=== PATIENT | male | born 1945 | race Caucasian/White ===

== ENCOUNTER 2020-08-18 11:13 | Inpatient (IN) ==
[2020-08-18] MEDS ORDERED: Isovue-370 500 ML BOTTLE IVP ONE (11:36)
[2020-08-18] MEDS ORDERED: 0.9 % Sodium Chloride 2,000 ML ONE (11:36)
[2020-08-18] MEDS: 0.9 % Sodium Chloride 1,000 ML IVC SCH ×4 (11:53→22:13)
[2020-08-18 11:59] LABS: Immature Granulocytes % 0.3 % (0-4); Nucleated Red Blood Cells 0.5 /100 WBC (0)
[2020-08-18 12:01] LABS: Basophils % 0.1 %; Hematocrit 43.5 % (37.5-50.1); Hemoglobin 15.1 g/dL (12.9-16.9); Immature Platelets 5.6 % (1.1-6.1); Lymphocytes # 7.2 K/mcL (0.6-4.6); Lymphocytes % 61.4 %; Mean Corpuscular HGB Conc 34.7 g/dL (31.6-35.5); Mean Corpuscular Hemoglobin 32.6 pg (28.0-33.3); Mean Platelet Volume 9.9 fL (9.4-12.4); Monocytes # 0.6 K/mcL (0.0-1.3); Monocytes % 4.7 %; Neutrophils # 3.9 K/mcL (1.6-8.9); Red Blood Count 4.63 M/mcL (4.19-5.50); Segmented Neutrophils % 33.5 %; White Blood Count 11.7 K/mcL (4.3-11.1)
[2020-08-18 12:04] LABS: INR 1.3; Prothrombin Time 14.5 Seconds (9.4-12.1)
[2020-08-18 12:07] LABS: Activated Partial Thrombo Time 28.6 Seconds (26.0-36.0)
[2020-08-18 12:16] LABS: Alanine Aminotransferase 47 Units/L (7-52); Albumin 3.5 g/dL (3.5-5.7); Albumin/Globulin Ratio 1.2 (1.1-2.2); Alkaline Phosphatase 81 Units/L (34-104); Aspartate Amino Transferase 93 Units/L (13-39); BUN/Creatinine Ratio 19 (6-26); Bilirubin,Direct 0.3 mg/dL (0.0-0.2); Bilirubin,Indirect 0.5 mg/dL (0.0-1.0); Bilirubin,Total 0.8 mg/dL (0.3-1.0); Blood Urea Nitrogen 21 mg/dL (8-23); C-Reactive Protein 108 mg/L (Less than 10); Calcium 8.2 mg/dL (8.6-10.3); Carbon Dioxide 22 mEq/L (23-29); Chloride 101 mEq/L (98-107); Globulin 2.9 g/dL (2.4-3.5); Glucose 115 mg/dL (70-105); Lactate Dehydrogenase 501 Units/L (140-271); Magnesium 1.8 mg/dL (1.6-2.6); Osmolality,Calculated 280 (280-300); Phosphorous 2.5 mg/dL (2.7-4.5); Potassium 3.6 mEq/L (3.5-5.1); Sodium 133 mEq/L (136-145); Total Protein 6.4 g/dL (6.4-8.9); Troponin I 0.04 ng/mL (< 0.04); eGFR For African Americans > 60 (> 60); eGFR For Non-African Americans > 60 (> 60)
[2020-08-18 12:26] LABS: Platelet Count 77 K/mcL (140-400)
[2020-08-18 12:26] LABS: Bilirubin,Urine Negative (Negative); Blood,Urine Large (Negative); Clarity,Urine Clear (Clear); Color,Urine Yellow (Yellow); Glucose,Urine (UA) Normal (Normal); Ketones,Urine Negative (Negative); Leukocyte Esterase,Urine Negative (Negative); Nitrite,Urine Negative (Negative); Protein,Urine 100 mg/dL (Neg-Trace); RBC,Urine 0-3 per hpf (0-3); Specific Gravity,Urine 1.026 (1.010-1.025); WBC,Urine 0-3 per hpf (0-3)
[2020-08-18 12:29] LABS: Platelet Estimate Decreased (Normal); Reactive Lymphocytes Present (Not Present)
[2020-08-18 12:32] LABS: Smudge Cells Present (Not Present)
[2020-08-18 12:39] LABS: Ferritin 792 ng/mL (20-250)
[2020-08-18] MEDS ORDERED: Dexamethasone 4 MG/ML VIAL IVP ONE (14:20)
[2020-08-18] MEDS ORDERED: Potassium Phosphate 44 MEQ in 0.9 % Sodium Chloride 250 ML IVPB ONE (14:22)
[2020-08-18] MEDS ORDERED: Acetaminophen 325 MG TABLET PO PRN (14:24)
[2020-08-18] MEDS ORDERED: Ondansetron 4 MG/2 ML VIAL IVP PRN (14:24)
[2020-08-18 15:05] LABS: Creatine Kinase 1282 Units/L (30-223)
[2020-08-18] MEDS ORDERED: QUEtiapine Fumarate 25 MG TABLET PO SCH (21:00)
[2020-08-19 06:06] LABS: Mean Corpuscular Volume 98.5 fL (83.0-100.0); Red Cell Distribution Width 13.6 % (11.5-14.5)
[2020-08-19 06:08] LABS: Hematocrit 38.7 % (37.5-50.1); Hemoglobin 13.4 g/dL (12.9-16.9); Immature Platelets 4.2 % (1.1-6.1); Mean Corpuscular HGB Conc 34.6 g/dL (31.6-35.5); Mean Corpuscular Hemoglobin 34.1 pg (28.0-33.3); Mean Platelet Volume 9.7 fL (9.4-12.4); Red Blood Count 3.93 M/mcL (4.19-5.50); White Blood Count 9.3 K/mcL (4.3-11.1)
[2020-08-19 06:14] LABS: BUN/Creatinine Ratio 21 (6-26); Blood Urea Nitrogen 19 mg/dL (8-23); Calcium 7.4 mg/dL (8.6-10.3); Carbon Dioxide 22 mEq/L (23-29); Chloride 108 mEq/L (98-107); Glucose 85 mg/dL (70-105); Magnesium 2.2 mg/dL (1.6-2.6); Osmolality,Calculated 284 (280-300); Phosphorous 2.9 mg/dL (2.7-4.5); Potassium 4.1 mEq/L (3.5-5.1); Sodium 136 mEq/L (136-145); eGFR For African Americans > 60 (> 60); eGFR For Non-African Americans > 60 (> 60)
[2020-08-19 06:43] LABS: Albumin/Globulin Ratio 1.3 (1.1-2.2); Bilirubin,Direct 0.2 mg/dL (0.0-0.2); Bilirubin,Indirect 0.4 mg/dL (0.0-1.0); Bilirubin,Total 0.6 mg/dL (0.3-1.0); Globulin 2.4 g/dL (2.4-3.5); Total Protein 5.4 g/dL (6.4-8.9)
[2020-08-19] MEDS: Aspirin Enteric Coated 81 MG Tablet PO SCH (08:11)
[2020-08-19] MEDS: QUEtiapine Fumarate 25 MG TABLET PO SCH ×3 (08:11→20:24)
[2020-08-19] MEDS: Dexamethasone 4 MG/ML VIAL IVP SCH (08:11)
[2020-08-19 15:38] LABS: Bilirubin,Urine Negative (Negative); Blood,Urine Large (Negative); Clarity,Urine Clear (Clear); Color,Urine Yellow (Yellow); Glucose,Urine (UA) Normal (Normal); Ketones,Urine Negative (Negative); Leukocyte Esterase,Urine Negative (Negative); Nitrite,Urine Negative (Negative); PH,Urine 6.5 pH Units (5.0-8.0); Protein,Urine 70 mg/dL (Neg-Trace); Specific Gravity,Urine 1.021 (1.010-1.025)
[2020-08-19] MEDS ORDERED: *HR* LORazepam 2 MG/ML VIAL IVP PRN (22:41)
[2020-08-19] MEDS ORDERED: Dexmedetomidine HCl 400 MCG/100 ML MLS IVC ONE (23:52)
[2020-08-20] MEDS ORDERED: Ipratropium 1 PUFF INHALER IH SCH
[2020-08-20] MEDS: Dexmedetomidine HCl 400 MCG/100 ML MLS IVC SCH (00:09)
[2020-08-20] MEDS ORDERED: Ipratropium 1 PUFF INHALER IH PRN (01:42)
[2020-08-20 05:54] LABS: BUN/Creatinine Ratio 21 (6-26); Blood Urea Nitrogen 19 mg/dL (8-23); Calcium 7.7 mg/dL (8.6-10.3); Carbon Dioxide 21 mEq/L (23-29); Chloride 108 mEq/L (98-107); Creatine Kinase 1251 Units/L (30-223); Glucose 105 mg/dL (70-105); Osmolality,Calculated 281 (280-300); Potassium 4.1 mEq/L (3.5-5.1); Sodium 134 mEq/L (136-145); eGFR For African Americans > 60 (> 60); eGFR For Non-African Americans > 60 (> 60)
[2020-08-20] MEDS: Aspirin Enteric Coated 81 MG Tablet PO SCH (07:47)
[2020-08-20] MEDS: QUEtiapine Fumarate 25 MG TABLET PO SCH ×3 (07:47→21:25)
[2020-08-20] MEDS: Dexamethasone 4 MG/ML VIAL IVP SCH (07:48)
[2020-08-20] MEDS: GuaiFENesin Liq 200 MG/10 ML UDC PO PRN (11:27)
[2020-08-20] MEDS ORDERED: *HR* Enoxaparin 40 MG/0.4 ML SYRINGE SQ ONE (14:07)
[2020-08-21] MEDS: *HR* Enoxaparin 40 MG/0.4 ML SYRINGE SQ SCH (05:35)
[2020-08-21 05:39] LABS: Hematocrit 43.5 % (37.5-50.1)
[2020-08-21 05:41] LABS: Immature Platelets 4.4 % (1.1-6.1); Mean Corpuscular HGB Conc 34.5 g/dL (31.6-35.5); Mean Corpuscular Hemoglobin 32.6 pg (28.0-33.3); Mean Corpuscular Volume 94.6 fL (83.0-100.0); Mean Platelet Volume 9.6 fL (9.4-12.4); Red Blood Count 4.6 M/mcL (4.19-5.50); Red Cell Distribution Width 13.3 % (11.5-14.5); White Blood Count 10.7 K/mcL (4.3-11.1)
[2020-08-21 06:07] LABS: BUN/Creatinine Ratio 23 (6-26); Blood Urea Nitrogen 18 mg/dL (8-23); Calcium 8.1 mg/dL (8.6-10.3); Carbon Dioxide 20 mEq/L (23-29); Chloride 105 mEq/L (98-107); Glucose 91 mg/dL (70-105); Osmolality,Calculated 281 (280-300); Sodium 135 mEq/L (136-145); eGFR For African Americans > 60 (> 60); eGFR For Non-African Americans > 60 (> 60)
[2020-08-21] MEDS: Aspirin Enteric Coated 81 MG Tablet PO SCH (08:41)
[2020-08-21] MEDS: Dexamethasone 4 MG/ML VIAL IVP SCH (08:41)
[2020-08-21] MEDS: QUEtiapine Fumarate 25 MG TABLET PO SCH ×3 (08:44→21:20)
[2020-08-21] MEDS: GuaiFENesin Liq 200 MG/10 ML UDC PO PRN (08:57)
[2020-08-21] MEDS ORDERED: Furosemide 20 MG/2 ML VIAL IVP ONE (10:57)
[2020-08-21] MEDS ORDERED: Dexamethasone 4 MG/ML VIAL IVP ONE (11:09)
[2020-08-22 02:33] LABS: Hematocrit 42.5 % (37.5-50.1); Hemoglobin 14.9 g/dL (12.9-16.9); Mean Corpuscular HGB Conc 35.1 g/dL (31.6-35.5); Mean Corpuscular Hemoglobin 33.1 pg (28.0-33.3); Mean Corpuscular Volume 94.4 fL (83.0-100.0); Mean Platelet Volume 9.6 fL (9.4-12.4); Platelet Count 108 K/mcL (140-400); Red Cell Distribution Width 13.2 % (11.5-14.5); White Blood Count 12.7 K/mcL (4.3-11.1)
[2020-08-22 02:51] LABS: BUN/Creatinine Ratio 26 (6-26); Blood Urea Nitrogen 20 mg/dL (8-23); Calcium 8.3 mg/dL (8.6-10.3); Carbon Dioxide 23 mEq/L (23-29); Chloride 105 mEq/L (98-107); Glucose 113 mg/dL (70-105); Osmolality,Calculated 285 (280-300); Potassium 3.7 mEq/L (3.5-5.1); Sodium 136 mEq/L (136-145); eGFR For African Americans > 60 (> 60); eGFR For Non-African Americans > 60 (> 60)
[2020-08-22] MEDS: *HR* Enoxaparin 40 MG/0.4 ML SYRINGE SQ SCH (06:18)
[2020-08-22] MEDS ORDERED: 0.9 % Sodium Chloride 1,000 ML ONE ×2 (07:33→12:26)
[2020-08-22] MEDS: QUEtiapine Fumarate 25 MG TABLET PO SCH ×3 (08:04→20:29)
[2020-08-22] MEDS: Isosorbide MONOnitrate (24 HR) 60 MG TAB.ER.24H PO SCH (08:04)
[2020-08-22] MEDS: Aspirin Enteric Coated 81 MG Tablet PO SCH (08:04)
[2020-08-22] MEDS: Ipratropium 1 PUFF INHALER IH SCH ×5 (08:05→23:51)
[2020-08-22] MEDS: Dexamethasone Sodium Phos/PF 10 MG/ML VIAL IVP SCH (08:05)
[2020-08-22] MEDS: Dexmedetomidine HCl 400 MCG/100 ML MLS IVC SCH ×2 (08:25→18:02)
[2020-08-22] MEDS ORDERED: Dexamethasone Sodium Phos/PF 10 MG/ML VIAL PO SCH (09:00)
[2020-08-22] MEDS ORDERED: Haloperidol Lactate 5 MG/ML VIAL IVP ONE (10:29)
[2020-08-22] MEDS: cefTRIAXone 2,000 MG in Water for inj. (sterile) 20 ML IVP SCH (13:35)
[2020-08-22] MEDS: Azithromycin 500 MG in 0.9 % Sodium Chloride 250 ML IVPB SCH (13:37)
[2020-08-22] MEDS: Norepinephrine 4 MG/254 ML IV.SOLN IVC SCH (13:37)
[2020-08-22] MEDS: Cholecalciferol (D-3) 1,000 UNIT (25MCG) TABLET PO SCH (17:08)
[2020-08-22] MEDS: *HR* Enoxaparin 100 MG/ML SYRINGE SQ SCH (17:26)
[2020-08-22] MEDS: Pantoprazole 40 MG VIAL IVP SCH (17:26)
[2020-08-22] MEDS: Furosemide 40 MG/4 ML VIAL IVP SCH (20:44)
[2020-08-22] MEDS: Phenytoin 200 MG in Equashield Syringe 1 EACH IVP SCH (21:17)
[2020-08-23] MEDS: Dexmedetomidine HCl 400 MCG/100 ML MLS IVC SCH ×4 (03:08→20:46)
[2020-08-23] MEDS: Ipratropium 1 PUFF INHALER IH SCH ×5 (03:41→20:11)
[2020-08-23 03:45] LABS: Hematocrit 39.4 % (37.5-50.1); Hemoglobin 13.8 g/dL (12.9-16.9); Mean Corpuscular Hemoglobin 33.3 pg (28.0-33.3); Mean Corpuscular Volume 95.2 fL (83.0-100.0); Platelet Count 114 K/mcL (140-400); Red Blood Count 4.14 M/mcL (4.19-5.50); Red Cell Distribution Width 13.1 % (11.5-14.5); White Blood Count 11.5 K/mcL (4.3-11.1)
[2020-08-23 04:05] LABS: BUN/Creatinine Ratio 34 (6-26); Blood Urea Nitrogen 29 mg/dL (8-23); Calcium 8.1 mg/dL (8.6-10.3); Carbon Dioxide 27 mEq/L (23-29); Chloride 105 mEq/L (98-107); Glucose 157 mg/dL (70-105); Osmolality,Calculated 295 (280-300); Potassium 3.7 mEq/L (3.5-5.1); Sodium 138 mEq/L (136-145); eGFR For African Americans > 60 (> 60); eGFR For Non-African Americans > 60 (> 60)
[2020-08-23] MEDS: *HR* Enoxaparin 100 MG/ML SYRINGE SQ SCH ×2 (05:19→18:15)
[2020-08-23] MEDS: Phenytoin 200 MG in Equashield Syringe 1 EACH IVP SCH ×2 (07:45→20:20)
[2020-08-23] MEDS: Aspirin Enteric Coated 81 MG Tablet PO SCH (09:27)
[2020-08-23] MEDS: Cholecalciferol (D-3) 1,000 UNIT (25MCG) TABLET PO SCH (09:28)
[2020-08-23] MEDS: QUEtiapine Fumarate 25 MG TABLET PO SCH ×4 (09:28→22:51)
[2020-08-23] MEDS: Isosorbide MONOnitrate (24 HR) 60 MG TAB.ER.24H PO SCH (09:28)
[2020-08-23] MEDS: Pantoprazole 40 MG VIAL IVP SCH (09:38)
[2020-08-23] MEDS: Furosemide 40 MG/4 ML VIAL IVP SCH ×2 (09:38→20:21)
[2020-08-23] MEDS: Dexamethasone Sodium Phos/PF 10 MG/ML VIAL IVP SCH (09:38)
[2020-08-23] MEDS ORDERED: 0.9 % Sodium Chloride 250 ML ONE (12:25)
[2020-08-23] MEDS: cefTRIAXone 2,000 MG in Water for inj. (sterile) 20 ML IVP SCH (12:26)
[2020-08-23] MEDS: Azithromycin 500 MG in 0.9 % Sodium Chloride 250 ML IVPB SCH (12:26)
[2020-08-23] MEDS: Norepinephrine 4 MG/254 ML IV.SOLN IVC SCH (12:27)
[2020-08-23] MEDS ORDERED: *HR* LORazepam 2 MG/ML VIAL IVP ONE (22:13)
[2020-08-24] MEDS: Ipratropium 1 PUFF INHALER IH SCH ×6 (00:15→20:47)
[2020-08-24] MEDS: Dexmedetomidine HCl 400 MCG/100 ML MLS IVC SCH ×4 (02:18→20:32)
[2020-08-24] MEDS: *HR* Enoxaparin 100 MG/ML SYRINGE SQ SCH ×2 (05:09→16:59)
[2020-08-24 05:18] LABS: Hemoglobin 14.5 g/dL (12.9-16.9); Mean Corpuscular HGB Conc 33.7 g/dL (31.6-35.5); Mean Corpuscular Hemoglobin 32.2 pg (28.0-33.3); Mean Corpuscular Volume 95.3 fL (83.0-100.0); Mean Platelet Volume 9.6 fL (9.4-12.4); Platelet Count 162 K/mcL (140-400); Red Blood Count 4.51 M/mcL (4.19-5.50); White Blood Count 12.7 K/mcL (4.3-11.1)
[2020-08-24] MEDS ORDERED: *HR* LORazepam 2 MG/ML VIAL IVP ONE (05:27)
[2020-08-24 05:34] LABS: BUN/Creatinine Ratio 31 (6-26); Blood Urea Nitrogen 29 mg/dL (8-23); Calcium 8.4 mg/dL (8.6-10.3); Carbon Dioxide 28 mEq/L (23-29); Chloride 106 mEq/L (98-107); Glucose 156 mg/dL (70-105); Osmolality,Calculated 303 (280-300); Potassium 3.7 mEq/L (3.5-5.1); Sodium 142 mEq/L (136-145); eGFR For African Americans > 60 (> 60); eGFR For Non-African Americans > 60 (> 60)
[2020-08-24] MEDS: Pantoprazole 40 MG VIAL IVP SCH (07:42)
[2020-08-24] MEDS: Furosemide 40 MG/4 ML VIAL IVP SCH ×2 (07:43→19:59)
[2020-08-24] MEDS: Dexamethasone Sodium Phos/PF 10 MG/ML VIAL IVP SCH (07:43)
[2020-08-24] MEDS: Phenytoin 200 MG in Equashield Syringe 1 EACH IVP SCH ×2 (07:46→19:58)
[2020-08-24] MEDS: QUEtiapine Fumarate 25 MG TABLET PO SCH ×3 (07:53→19:59)
[2020-08-24] MEDS: Isosorbide MONOnitrate (24 HR) 60 MG TAB.ER.24H PO SCH (07:53)
[2020-08-24] MEDS: Cholecalciferol (D-3) 1,000 UNIT (25MCG) TABLET PO SCH (07:53)
[2020-08-24] MEDS: Aspirin Enteric Coated 81 MG Tablet PO SCH (07:53)
[2020-08-24] MEDS ORDERED: 0.9 % Sodium Chloride 250 ML ONE (08:15)
[2020-08-24] MEDS ORDERED: Haloperidol Lactate 5 MG/ML VIAL IVP ONE (09:34)
[2020-08-24] MEDS: Azithromycin 500 MG in 0.9 % Sodium Chloride 250 ML IVPB SCH (11:55)
[2020-08-24] MEDS: cefTRIAXone 2,000 MG in Water for inj. (sterile) 20 ML IVP SCH (11:57)
[2020-08-24] MEDS: *HR* LORazepam 2 MG/ML VIAL IVP PRN ×2 (14:55→22:08)
[2020-08-25] MEDS: Ipratropium 1 PUFF INHALER IH SCH ×6 (00:03→20:01)
[2020-08-25] MEDS: *HR* LORazepam 2 MG/ML VIAL IVP PRN ×3 (02:22→21:37)
[2020-08-25] MEDS: Dexmedetomidine HCl 400 MCG/100 ML MLS IVC SCH ×4 (02:32→19:39)
[2020-08-25 05:00] LABS: Hemoglobin 15.5 g/dL (12.9-16.9); Mean Corpuscular HGB Conc 33.7 g/dL (31.6-35.5); Mean Corpuscular Hemoglobin 32.7 pg (28.0-33.3); Mean Platelet Volume 9.6 fL (9.4-12.4); Platelet Count 189 K/mcL (140-400); Red Blood Count 4.74 M/mcL (4.19-5.50); White Blood Count 12.9 K/mcL (4.3-11.1)
[2020-08-25 05:16] LABS: BUN/Creatinine Ratio 37 (6-26); Blood Urea Nitrogen 35 mg/dL (8-23); Calcium 8.7 mg/dL (8.6-10.3); Carbon Dioxide 29 mEq/L (23-29); Chloride 105 mEq/L (98-107); Glucose 165 mg/dL (70-105); Osmolality,Calculated 312 (280-300); Potassium 3.5 mEq/L (3.5-5.1); Sodium 145 mEq/L (136-145); eGFR For African Americans > 60 (> 60); eGFR For Non-African Americans > 60 (> 60)
[2020-08-25] MEDS: *HR* Enoxaparin 100 MG/ML SYRINGE SQ SCH ×2 (06:19→17:39)
[2020-08-25] MEDS: Pantoprazole 40 MG VIAL IVP SCH (07:48)
[2020-08-25] MEDS: Furosemide 40 MG/4 ML VIAL IVP SCH ×2 (07:49→21:36)
[2020-08-25] MEDS: Isosorbide MONOnitrate (24 HR) 60 MG TAB.ER.24H PO SCH (07:50)
[2020-08-25] MEDS: QUEtiapine Fumarate 25 MG TABLET PO SCH ×3 (07:50→21:37)
[2020-08-25] MEDS: Aspirin Enteric Coated 81 MG Tablet PO SCH (07:50)
[2020-08-25] MEDS: Cholecalciferol (D-3) 1,000 UNIT (25MCG) TABLET PO SCH (07:50)
[2020-08-25] MEDS: Dexamethasone Sodium Phos/PF 10 MG/ML VIAL IVP SCH (07:50)
[2020-08-25] MEDS: Phenytoin 200 MG in Equashield Syringe 1 EACH IVP SCH ×2 (08:47→21:38)
[2020-08-25] MEDS: Azithromycin 500 MG in 0.9 % Sodium Chloride 250 ML IVPB SCH (11:48)
[2020-08-25] MEDS: cefTRIAXone 2,000 MG in Water for inj. (sterile) 20 ML IVP SCH (11:48)
[2020-08-26] MEDS: Ipratropium 1 PUFF INHALER IH SCH ×7 (00:04→23:15)
[2020-08-26] MEDS: Dexmedetomidine HCl 400 MCG/100 ML MLS IVC SCH ×4 (01:45→20:19)
[2020-08-26 04:36] LABS: Hemoglobin 16.2 g/dL (12.9-16.9); Mean Corpuscular HGB Conc 33.1 g/dL (31.6-35.5); Mean Corpuscular Volume 96.8 fL (83.0-100.0); Mean Platelet Volume 9.5 fL (9.4-12.4); Platelet Count 237 K/mcL (140-400); Red Blood Count 5.06 M/mcL (4.19-5.50); Red Cell Distribution Width 13.2 % (11.5-14.5); White Blood Count 15.1 K/mcL (4.3-11.1)
[2020-08-26 04:54] LABS: BUN/Creatinine Ratio 37 (6-26); Blood Urea Nitrogen 39 mg/dL (8-23); Calcium 8.7 mg/dL (8.6-10.3); Carbon Dioxide 28 mEq/L (23-29); Chloride 109 mEq/L (98-107); Glucose 174 mg/dL (70-105); Osmolality,Calculated 324 (280-300); Potassium 3.5 mEq/L (3.5-5.1); Sodium 150 mEq/L (136-145); eGFR For African Americans > 60 (> 60); eGFR For Non-African Americans > 60 (> 60)
[2020-08-26] MEDS: *HR* Enoxaparin 100 MG/ML SYRINGE SQ SCH ×2 (05:06→18:30)
[2020-08-26] MEDS: Isosorbide MONOnitrate (24 HR) 60 MG TAB.ER.24H PO SCH (08:50)
[2020-08-26] MEDS: Aspirin Enteric Coated 81 MG Tablet PO SCH (08:50)
[2020-08-26] MEDS: QUEtiapine Fumarate 25 MG TABLET PO SCH (08:50)
[2020-08-26] MEDS: Cholecalciferol (D-3) 1,000 UNIT (25MCG) TABLET PO SCH (08:50)
[2020-08-26] MEDS: Pantoprazole 40 MG VIAL IVP SCH (08:59)
[2020-08-26] MEDS ORDERED: Dexamethasone Sodium Phos/PF 10 MG/ML VIAL PO SCH (09:00)
[2020-08-26] MEDS: Phenytoin 200 MG in Equashield Syringe 1 EACH IVP SCH ×2 (09:00→20:14)
[2020-08-26] MEDS: D5% in Water 1,000 ML IVC SCH (09:00)
[2020-08-26] MEDS: Dexamethasone Sodium Phos/PF 10 MG/ML VIAL IVP SCH (09:00)
[2020-08-26] MEDS: cefTRIAXone 2,000 MG in Water for inj. (sterile) 20 ML IVP SCH (12:09)
[2020-08-26] MEDS: Azithromycin 500 MG in 0.9 % Sodium Chloride 250 ML IVPB SCH (12:09)
[2020-08-27] MEDS: Ipratropium 1 PUFF INHALER IH SCH ×6 (03:46→23:30)
[2020-08-27] MEDS ORDERED: Acetaminophen IV 1,000 MG/100 ML BAG IVPB ONE (04:31)
[2020-08-27] MEDS: *HR* Enoxaparin 100 MG/ML SYRINGE SQ SCH (05:56)
[2020-08-27 06:19] LABS: Hematocrit 47.1 % (37.5-50.1); Hemoglobin 15.6 g/dL (12.9-16.9); Mean Corpuscular HGB Conc 33.1 g/dL (31.6-35.5); Mean Corpuscular Hemoglobin 32.2 pg (28.0-33.3); Mean Corpuscular Volume 97.3 fL (83.0-100.0); Mean Platelet Volume 9.7 fL (9.4-12.4); Platelet Count 216 K/mcL (140-400); Red Blood Count 4.84 M/mcL (4.19-5.50); Red Cell Distribution Width 13.2 % (11.5-14.5); White Blood Count 12.6 K/mcL (4.3-11.1)
[2020-08-27 06:39] LABS: BUN/Creatinine Ratio 35 (6-26); Blood Urea Nitrogen 45 mg/dL (8-23); Calcium 8.5 mg/dL (8.6-10.3); Carbon Dioxide 31 mEq/L (23-29); Chloride 112 mEq/L (98-107); Glucose 181 mg/dL (70-105); Osmolality,Calculated 328 (280-300); Potassium 3.5 mEq/L (3.5-5.1); Sodium 151 mEq/L (136-145); eGFR For African Americans > 60 (> 60); eGFR For Non-African Americans 55 (> 60)
[2020-08-27] MEDS: Pantoprazole 40 MG VIAL IVP SCH (07:48)
[2020-08-27] MEDS: Phenytoin 200 MG in Equashield Syringe 1 EACH IVP SCH ×2 (07:48→21:03)
[2020-08-27] MEDS: Dexamethasone Sodium Phos/PF 10 MG/ML VIAL IVP SCH (07:48)
[2020-08-27] MEDS: D5% in Water 1,000 ML IVC SCH (07:49)
[2020-08-27] MEDS: Cholecalciferol (D-3) 1,000 UNIT (25MCG) TABLET PO SCH (07:49)
[2020-08-27] MEDS: Dexmedetomidine HCl 400 MCG/100 ML MLS IVC SCH ×2 (10:14→16:14)
[2020-08-27] MEDS: *HR* LORazepam 2 MG/ML VIAL IVP PRN ×2 (13:12→21:03)
[2020-08-27] MEDS ORDERED: *HR* Enoxaparin 100 MG/ML SYRINGE SQ SCH (18:00)
[2020-08-27] MEDS ORDERED: *HR* Dextrose 50 % in Water (Vial) 50 ML VIAL IVP PRN (18:51)
[2020-08-27] MEDS ORDERED: D5% in Water 1,000 ML IVC PRN (18:51)
[2020-08-27] MEDS ORDERED: Dextrose Gel 15 GM/37.5 ML TUBE PO PRN ×2 (18:51)
[2020-08-27] MEDS ORDERED: D5% in 0.45% NACL 250 ML IVC SCH (19:00)
[2020-08-27 19:34] VITALS: BP 113/73
[2020-08-28] MEDS ORDERED: Insulin LISPRO 300 UNITS/3 ML VIAL SUBQ SCH
[2020-08-28] MEDS: Ipratropium 1 PUFF INHALER IH SCH (04:27)
[2020-08-28] MEDS ORDERED: Atropine 1% Opth Drops 100 DROP/5 ML BOTTLE SL PRN (04:31)
[2020-08-28] MEDS ORDERED: Morphine Sulfate 2 MG/ML SYRINGE IVP PRN (04:31)
== END 2020-08-28 08:05 | disposition expired | DRG 871 ==
LOC: EMEROOARM 11:13 → 2NENU 11:13 → SUATTDRO 08-19 13:48 → 2NENU 08-22 10:20
PROVIDERS: ADMIT Internal Medicine; ATTEND Internal Medicine